=== PATIENT | female | born 1965 | race Caucasian/White ===

== ENCOUNTER → 2016-10-02 | Outpatient (CLI) | payer BC ==
--- NOTE | 2016-10-03 12:50 | MM ---
Reason for exam: screening (asymptomatic). Last mammogram was performed 1 year and 2 months ago. Physical Findings: A clinical breast exam by your physician is recommended on an annual basis and results should be correlated with mammographic findings. MG Screening Mammo w CAD Bilateral CC and MLO view(s) were taken. Prior study comparison: August 16, 2015, bilateral MG screening mammo w CAD. The breast tissue is heterogeneously dense. This may lower the sensitivity of mammography. No significant changes when compared with prior studies. ASSESSMENT: Benign, BI-RAD 2 RECOMMENDATION: Routine screening mammogram of both breasts in 1 year.
== END | disposition home or self-care (01) ==
LOC: RADMAMWWP 07:38
PROVIDERS: ATTEND Obstetrics & Gynecology
DX: Z12.31 Encounter for screening mammogram for malignant neoplasm of breast (principal)

== ENCOUNTER → 2018-05-08 | Outpatient (CLI) | payer BC | END | disposition home or self-care (01) | LOC: LABWHC1 15:12 | PROVIDERS: ATTEND Anesthesiology | DX: Z01.818 Encounter for other preprocedural examination (principal) | CPT/HCPCS: 36415; 93005 ==

== ENCOUNTER → 2018-07-02 | Day surgery (SDC) | payer BC ==
[~2018-07-02] MED LIST: LIDOCAINE 1% INJ 10MG/ML (20 ML MDV) ONE; LIDOCAINE 1% INJ 10MG/ML (20 ML MDV) SQ ONE; ceFAZolin 2 GM in SODIUM CHLORIDE 0.9% 100 ML IVPB ONE; ceFAZolin IN SWFI 2 GM/20 ML SYRINGE IVP ONE
[2018-07-02 11:18] VITALS: RESP 18; TEMP 98
[2018-07-02 11:47] LABS: Basophils % (A) 1 %; Eosinophils # (A) 0.3 k/uL (0-0.7); Eosinophils % (A) 6 %; HCT 32.2 % (34.0-46.0); HGB 10.9 gm/dL (11.4-16.0); Lymphocytes # (A) 1.6 k/uL (1.0-4.8); Lymphocytes % (A) 32 %; MCH 27.1 pg (25.0-35.0); MCHC 33.8 g/dL (31.0-37.0); MCV 80.3 fL (80.0-100.0); Mean Platelet Volume 7.6; Monocytes # (A) 0.3 k/uL (0-1.0); Monocytes % (A) 6 %; Neutrophils # (A) 2.6 k/uL (1.3-7.7); Neutrophils % (A) 53 %; Platelet Count 362 k/uL (150-450); RBC 4.01 m/uL (3.80-5.40); RDW 13.4 % (11.5-15.5); WBC 4.9 k/uL (3.8-10.6)
[2018-07-02 12:18] LABS: Potassium 4.4 mmol/L (3.5-5.1)
[2018-07-02 12:37] VITALS: BP 140/80; PULSE 76
--- NOTE | 2018-07-02 13:24 | IR ---
PICC LINE PLACEMENT: HISTORY: Infection requiring long-term antibiotic therapy PROCEDURE: Ultrasound and fluoroscopic guidance of PICC line placement. COMPLICATIONS: None ANESTHESIA: 1. 1% Lidocaine locally. FINDINGS/TECHNIQUE: The procedure was explained to the patient. The risks, complications, benefits and alternatives were discussed and any questions were answered. Informed consent was obtained. The patient was placed supine on the fluoroscopic table and prepped and draped in the usual sterile fash ion. Utilizing a 21 gauge needle and sonographic and fluoroscopic guidance, access in the left basi lic vein was achieved and there is placement of a 0.018 guidewire. The vein is patent. A 4-F sheath was placed over the guidewire. The guidewire and dilator were removed and a 4-F. PICC line was plac ed through the sheath with the tip at the level of the SVC. The sheath was removed, the catheter was flushed and sutured into position. The patient was stable throughout the procedure and remained sta ble upon discharge from the Department of Radiology. The vein puncture was patent under ultrasound. A de leon scale image was obtained to document patency of the vein punctured. All elements of the maximal barrier technique were utilized. FLUOROSCOPY TIME: 0.2 minutes and one image submitted IMPRESSION: Successful PICC line placement under ultrasound and fluoroscopic guidance.
== END ==
LOC: CATHCVL 10:49
PROVIDERS: ATTEND Radiology Diagnostic Radiology
DX: L08.9 Local infection of the skin and subcutaneous tissue, unspecified (principal); M19.90 Unspecified osteoarthritis, unspecified site; J45.909 Unspecified asthma, uncomplicated; E11.9 Type 2 diabetes mellitus without complications; E78.00 Pure hypercholesterolemia, unspecified; Z87.891 Personal history of nicotine dependence; I10 Essential (primary) hypertension; Z79.1 Long term (current) use of non-steroidal anti-inflammatories (NSAID); Z79.891 Long term (current) use of opiate analgesic; Z79.899 Other long term (current) drug therapy; Z88.5 Allergy status to narcotic agent
CPT/HCPCS: 36573; 80051; 84520; 85025; C1751; C1769; J2001; J0690

== ENCOUNTER → 2018-11-04 | Outpatient (CLI) | payer BC ==
--- NOTE | 2018-11-06 10:40 | MM ---
Reason for exam: screening (asymptomatic). Last mammogram was performed 2 years and 1 month ago. Physical Findings: A clinical breast exam by your physician is recommended on an annual basis and results should be correlated with mammographic findings. MG Screening Mammo w CAD Bilateral CC and MLO view(s) were taken. Prior study comparison: October 02, 2016, bilateral MG screening mammo w CAD. August 16, 2015, bilateral MG screening mammo w CAD. The breast tissue is extremely dense which could obscure a lesion on mammography. No significant changes when compared with prior studies. ASSESSMENT: Benign, BI-RAD 2 RECOMMENDATION: Routine screening mammogram of both breasts in 1 year.
== END | disposition home or self-care (01) ==
LOC: RADMAMWWP 15:30
PROVIDERS: ATTEND Obstetrics & Gynecology
DX: Z12.31 Encounter for screening mammogram for malignant neoplasm of breast (principal)
CPT/HCPCS: 77067

== ENCOUNTER → 2019-08-07 | Outpatient (CLI) | payer BC ==
[2019-08-07 15:11] LABS: HCT 37.1 % (34.0-46.0); HGB 12.1 gm/dL (11.4-16.0); MCH 26.7 pg (25.0-35.0); MCHC 32.5 g/dL (31.0-37.0); MCV 82.1 fL (80.0-100.0); Mean Platelet Volume 8.2; Platelet Count 359 k/uL (150-450); RBC 4.53 m/uL (3.80-5.40); RDW 13.7 % (11.5-15.5); WBC 5.7 k/uL (3.8-10.6)
[2019-08-07 15:26] LABS: Appearance,Urine Cloudy (Clear); Bilirubin,Urine Negative (Negative); Blood,Urine Negative (Negative); Color,Urine Yellow; Glucose,Urine (UA) Negative (Negative); Ketones,Urine Negative (Negative); Leukocyte Esterase,Urine Small (Negative); Mucus,Urine Rare /hpf; Nitrite,Urine Negative (Negative); Protein,Urine Negative (Negative); RBC,Urine 8 /hpf (0-5); Specific Gravity,Urine 1.021 (1.001-1.035); Squamous Epithelial Cell,Urine 9 /hpf (0-4); WBC,Urine 1 /hpf (0-5)
[2019-08-07 15:29] LABS: ALT 13 U/L (4-34); AST 22 U/L (14-36); African American GFR (CKD) >90 (>60 ml/min/1.73 sqM); Albumin 4.9 g/dL (3.5-5.0); Alkaline Phosphatase 127 U/L (38-126); Anion Gap 10 mmol/L; Blood Urea Nitrogen 24 mg/dL (7-17); Calcium 10.2 mg/dL (8.4-10.2); Carbon Dioxide 30 mmol/L (22-30); Chloride 98 mmol/L (98-107); Glucose 175 mg/dL (74-99); Non-African American GFR(CKD) >90 (>60 ml/min/1.73 sqM); Sodium 138 mmol/L (137-145); Total Bilirubin 0.3 mg/dL (0.2-1.3); Total Protein 7.9 g/dL (6.3-8.2)
[2019-08-07 15:36] LABS: Partial Thromboplastin Time 25.9 sec (22.0-30.0); Prothrombin Time 10.3 sec (9.0-12.0)
== END | disposition home or self-care (01) ==
LOC: LABPAT 14:08
PROVIDERS: ATTEND Orthopaedic Surgery
DX: Z01.818 Encounter for other preprocedural examination (principal); Z01.812 Encounter for preprocedural laboratory examination
CPT/HCPCS: 36415; 80053; 81001; 85027; 85610; 85730; 86850; 86900; 86901; 87070; 93005

== ENCOUNTER 2019-08-18 05:49 | Day surgery (SDC) | payer BC ==
[2019-08-14 16:54] VITALS: BMI 26.9
[~2019-08-18 05:49] MED LIST changes: +ACETAMINOPHEN TAB 500 MG TAB PO ONE; +DEXAMETHASONE SOD PHOSPHATE 10 MG/ML 1 ML VIAL IV ONE; +GABAPENTIN 300 MG CAP PO ONE; +LIDOCAINE 1% (10MG/ML) FOR IV START INTRADERMA PRN; -LIDOCAINE 1% INJ 10MG/ML (20 ML MDV) ONE; -LIDOCAINE 1% INJ 10MG/ML (20 ML MDV) SQ ONE; +MELOXICAM 7.5 MG TAB PO ONE; +ONDANSETRON 4 MG/2 ML VIAL IVP ONE; +SCOPOLAMINE 1.5MG/72HR PATCH TRANSDERM ONE; +TRANEXAMIC ACID 1,000 MG in SODIUM CHLORIDE 0.9% 100 ML IVPB ONE; -ceFAZolin 2 GM in SODIUM CHLORIDE 0.9% 100 ML IVPB ONE; -ceFAZolin IN SWFI 2 GM/20 ML SYRINGE IVP ONE
[2019-08-18] MEDS ORDERED: LACTATED RINGERS 1,000 ML IV ONE ×2 (06:10→07:36)
[2019-08-18 06:14] LABS: Glucose,Whole Blood 114 mg/dL (75-99)
[2019-08-18] MEDS ORDERED: PROPOFOL 10 MG/ML 20 ML VIAL IV ONE (06:50)
[2019-08-18] MEDS ORDERED: fentaNYL (PF) 50 MCG/ML 2 ML AMP ONE (06:50)
[2019-08-18] MEDS ORDERED: SODIUM CHLORIDE 0.9% IRRIG 1,000 ML BTL IRRIGATION ONE (06:50)
[2019-08-18] MEDS ORDERED: HEPARIN SODIUM,PORCINE 10,000 UNIT/ML 1 ML VIAL ONE (06:50)
[2019-08-18] MEDS ORDERED: ePHEDrine SULFATE/0.9% NACL/PF 50 MG/5 ML SYRINGE IV ONE (06:50)
[2019-08-18] MEDS ORDERED: TRANEXAMIC ACID 1,000 MG/10 ML VIAL ONE (06:50)
[2019-08-18] MEDS ORDERED: MIDAZOLAM 2 MG/2 ML VIAL ONE (06:50)
[2019-08-18] MEDS ORDERED: PHENYLEPHRINE-0.9% NACL SYG 1 MG/10 ML SYRINGE ONE (06:50)
[2019-08-18] MEDS ORDERED: SODIUM CHLORIDE 0.9% 100 ML BAG ONE (06:50)
[2019-08-18] MEDS ORDERED: ceFAZolin 3,000 MG in SODIUM CHLORIDE 0.9% IRRIGATIO 3,000 ML IRRIGATION ONE (06:54)
[2019-08-18] MEDS ORDERED: hydrOXYzine PAMOATE 25 MG CAP PO PRN (07:02)
[2019-08-18] MEDS ORDERED: HYDROmorphone 1 MG/ML 1 ML SYRINGE IVP PRN (07:02)
[2019-08-18] MEDS ORDERED: HYDROcodone/APAP 5-325MG 1 EACH TAB PO PRN (07:02)
[2019-08-18] MEDS ORDERED: NALOXONE 0.4 MG/ML 1 ML VIAL IV PRN (07:02)
[2019-08-18] MEDS ORDERED: DIAZEPAM 5 MG TAB PO PRN (07:02)
[2019-08-18] MEDS ORDERED: MAGNESIUM HYDROXIDE 2,400 MG/10 ML CUP PO PRN (07:02)
[2019-08-18] MEDS ORDERED: HYDROmorphone 0.5 MG/0.5 ML SYRINGE IVP PRN ×2 (07:02)
[2019-08-18] MEDS ORDERED: ONDANSETRON 4 MG/2 ML VIAL IVP PRN (07:02)
[2019-08-18] MEDS: ROPIVACAINE 246.25 MG, EPINEPHrine 0.5 MG, KETOROLAC 30 MG, cloNIDine HCL/PF 80 MCG, WA... MISCELLANE ONE ×10 (07:23→08:04)
--- NOTE | 2019-08-18 08:29 | P.OP ---
Date of Procedure: 08/18/19 Preoperative Diagnosis: Severe osteoarthritis right hip Postoperative Diagnosis: Severe osteoarthritis right hip Procedure(s) Performed: Right total hip arthroplasty with a direct anterior approach Implants: Beebe and nephew Polarstem size 2 standard Beebe [employer] Nephew R3, 3 hole acetabular shell, 48 mm [employer]be [employer]hew reflection 6.5 mm cancellus screw, 20 mm 2 Bee[employer]hew R3, XLPE 20 acetabular liner Beebe [employer] Nephew Oxinium femoral head 32 m, +0 All components were press-fit. The articulation is Oxinium on polyethylene. Anesthesia: spinal Surgeon: Reji Pink Staff Forester #1: Connie Lee Estimated Blood Loss (ml): 350 (130 mL returned with Cell Saver) Pathology: other (Femoral head) Condition: stable Disposition: PACU Indications for Procedure: After failure of conservative treatment we discussed the surgical and nonsurgical treatment options at length. Patient wishes to proceed with a total hip arthroplasty with a direct anterior approach. Complications specific to this procedure were discussed at length, including but not limited to infection, leg length discrepancy, dislocation, and nerve injury. Covid-19 was also discussed at length with the patient, and they are aware of the current policies and procedures. The patient was given the option of delaying surgery, but they elect to proceed knowing these risks. Patient is aware of all these complications and informed consent was obtained Operative Findings: The operative findings are consistent with severe osteoarthritis of the right hip Description of Procedure: Patient was seen and evaluated in the preoperative area, consent was reviewed, and the surgical site was marked with a skin marker. Patient was then brought to the operating room and given prophylactic antibiotics intravenously. 1 g of Tranexamic acid was also given. A spinal anesthetic was administered by the anesthesia department. The patient was then placed on the Hemet table with the bony prominences well-padded. The hip area was then prepped and draped in usual sterile fashion. A universal timeout was then performed, which confirmed the patient's name, surgical site, ALLERGIES, and procedure being performed. Next the incision site was located at 1 cm distal and 1 cm lateral to the anterior superior iliac spine. The skin and subcutaneous tissues were sharply incised. Incision was carefully dissected down to the fascia overlying the tensor fascia lenny muscle. This fascia was then incised in line with the incision. Next, using blunt finger dissection, the tensor fascia lenny muscle was dissected off its investing fascia. The muscle was then carefully retracted laterally with a cobra retractor over the lateral neck of the femur. Next, the circumflex vessels were identified and cauterized using the AquaMantis device. The anterior hip capsule was then exposed. The capsule was then opened and an inverted T fashion. Cobra retractors were then placed intracapsularly. The proximal femur was then visualized. The femoral neck was then osteotomized appropriate level above the lesser trochanter. Small amount of traction was placed with the Hemet table. A small wedge of bone was then removed from the remaining femoral head. Next, using a corkscrew femoral head was easily removed from the acetabulum. On gross visual inspection, the femoral head had complete loss of articular cartilage in multiple periarticular osteophytes. Attention was then turned to the acetabulum. the acetabulum was exposed and any remaining labrum was excised. Sequential reaming of the acetabulum was performed using fluoroscopic guidance. When the appropriate size was reached, a trial was then placed. The position and fit of the trial was checked with fluoroscopy. The trial was then removed. Then, using fluoroscopic guidance, the final implant was impacted at 20 of anteversion and 40 of abduction, and fully seated in the acetabulum. 2 screws were then placed in the acetabulum. Again fluoroscopy was used to check position of the screws. Next, the liner was then impacted, with a 20 elevated liner located in the anterior superior quadrant. Component locking was confirmed. Attention was then directed to the femur. With the aid of the Hemet table, the femur was externally rotated to approximately 130, extended, and abducted under the opposite leg. A side hook was then placed under the proximal femur, and the side hook elevator was used to elevate the proximal femur. Retractors were then placed. A capsular release was performed, as well as a release of the conjoined tendon, which afforded excellent visualization of the proximal femur. Next, a box osteotome was used to lateralize the proximal femur. A coil winder hand was then used to locate the femoral canal. Sequential broaching was then performed with appropriate size which afforded excellent fixation in the proximal femur. A trial was then placed with appropriate head and neck, and the hip was gently reduced with the aid of the Hemet table. Fluoroscopy was then used to check position of the components, as well as to ensure equal leg lengths. The hip was then gently dislocated and the trials were then removed. Final implants were then impacted and the hip was again reduced. Final fluoroscopic x-rays confirmed that the components were in anatomic position, as well as equal leg lengths. The hip was also taken through range of motion, and found to be stable. The hip was then copiously irrigated with antibiotic solution with pulsatile lavage. The hip was then irrigated with Irrisept solution. The soft tissues were then injected with a ropivacaine solution, which consisted of 246.25 mg of ropivacaine, 0.5 mg of epinephrine, 30 mg of Toradol, 80 g of clonidine, and 48.45 mL of sterile water, for a total of 100 mL of fluid injected. A second dose of 1 g of Tranexamic acid was also given. the fascia was then closed with 2-0 strata fix suture. The subcutaneous tissue was closed with 3-0 Vicryl. The subcuticular tissue was closed with 3-0 strata fix suture. The skin was then closed with Dermabond glue and a sterile silver dressing. The patient was then transferred to the recovery room in stable condition. The sales assistant entertainment and media HAI Ramirez was required due to the complexity of surgery, and the need for skilled certified surgical assistant for positioning, draping, exposure, retraction, and closure of the wound.
--- NOTE | 2019-08-18 08:43 | FL ---
Fluoroscopy INDICATION: Pain FINDINGS: Fluoroscopy time: 44 seconds. Images obtained: 2. IMPRESSIONS: 1. Documentation of fluoroscopy.
--- NOTE | 2019-08-18 09:09 | XR ---
AP right hip INDICATION: Pain post surgery Technique: AP view right hip. Findings: Prosthesis is present. Postsurgical changes are present. No acute fractures are evident. IMPRESSIONS: 1. No acute fractures post right hip replacement.
[2019-08-18] MEDS: HYDROmorphone 0.5 MG/0.5 ML SYRINGE IVP PRN ×2 (09:10→09:20)
[2019-08-18] MEDS ORDERED: SODIUM CHLORIDE 0.9% 1,000 ML IV ONE (10:46)
[2019-08-18] MEDS: LACTATED RINGERS 1,000 ML IV SCH (11:23)
[2019-08-18] MEDS: SODIUM CHLORIDE 0.9% 1,000 ML IV SCH ×2 (11:24→22:02)
[2019-08-18] MEDS: HYDROcodone/APAP 5-325MG 1 EACH TAB PO PRN ×2 (13:35→22:03)
--- NOTE | 2019-08-18 15:05 | P.CONS ---
History of Present Illness - Reason for Consult Management of hypertension - History of Present Illness Patient is a pleasant 54-year-old female admitted for a right total hip arthroplasty successfully underwent surgery clinically doing well. Patient doesn't have a Trujillo catheter or surgical drain. patient pain is where well- controlled, patient blood pressure is bit elevated . Review of Systems REVIEW OF SYSTEMS: CONSTITUTIONAL: No fever, no malaise, no fatigue. HEENT: No recent visual problems or hearing problems. Denied any sore throat. CARDIOVASCULAR: No chest pain, orthopnea, PND, no palpitations, no syncope. PULMONARY: No shortness of breath, no cough, no hemoptysis. GASTROINTESTINAL: No diarrhea, no nausea, no vomiting, no abdominal pain. NEUROLOGICAL: No headaches, no weakness, no numbness. HEMATOLOGICAL: Denies any bleeding or petechiae. GENITOURINARY: Denies any burning micturition, frequency, or urgency. MUSCULOSKELETAL/RHEUMATOLOGICAL: Denies any joint pain, swelling, or any muscle pain. ENDOCRINE: Denies any polyuria or polydipsia. The rest of the 14-point review of systems is negative. Past Medical History Past Medical History: Asthma, Diabetes Mellitus, GERD/Reflux, Hyperlipidemia, Hypertension, Musculoskeletal Disorder, Osteoarthritis (OA) Additional Past Medical History / Comment(s): infection right second toe after recent surgery, DIABETIC- DIET CONTROLLED History of Any Multi-Drug Resistant Organisms: None Reported Past Surgical History: Appendectomy, Back Surgery, Bladder Surgery, Cholecystectomy, Hysterectomy, Orthopedic Surgery Additional Past Surgical History / Comment(s): cervical fusion x 2, mai bunionectomy, neuromas removed right foot, surg for plantar fascitis, hammer toe surg right 2nd toe w/pin inserted , BILATERAL CARPAL TUNNEL SURGERY, TUMMY TUCK Past Anesthesia/Blood Transfusion Reactions: No Reported Reaction Past Psychological History: Anxiety Smoking Status: Never smoker Past Alcohol Use History: Occasional Additional Past Alcohol Use History / Comment(s): STARTED SMOKING AT AGE 18 QUIT IN 2000 SMOKED 1PPD Past Drug Use History: None Reported - Past Family History Father Family Medical History: Cancer Medications and Allergies Home Medications Medication Instructions Recorded Confirmed Type Atenolol 50 mg PO DAILY 06/01/15 08/14/19 History Hydrochlorothiazide 25 mg PO DAILY 06/01/15 08/14/19 History Lisinopril 10 mg PO DAILY 06/01/15 08/14/19 History traMADol HCl [Ultram] 50 mg PO Q4H PRN #30 tab 06/01/15 08/14/19 Rx DULoxetine HCL [Cymbalta] 60 mg PO BID 07/01/18 08/14/19 History Gabapentin [Neurontin] 800 mg PO TID 07/01/18 08/14/19 History Gemfibrozil [Lopid] 600 mg PO AC-BID 07/01/18 08/14/19 History Montelukast [Singulair] 10 mg PO HS 07/01/18 08/14/19 History Multivitamins, Thera [Multivitamin 1 tab PO DAILY 07/01/18 08/14/19 History (formulary)] Omeprazole [PriLOSEC] 20 mg PO AC-BID 08/14/19 08/14/19 History Allergies Allergy/AdvReac Type Severity Reaction Status Date / Time erythromycin base Allergy Nausea & Verified 08/14/19 16:28 Vomiting phenytoin sodium AdvReac Nausea & Verified 08/14/19 16:28 [From Dilantin] Vomiting phenytoin sodium extended AdvReac Nausea & Verified 08/14/19 16:28 [From Dilantin] Vomiting Physical Exam Vitals: Vital Signs Temp Pulse Resp BP BP Pulse Ox 08/18/19 12:24 75 100 08/18/19 12:21 74 93/58 100 08/18/19 12:07 74 100/57 97 08/18/19 11:51 76 110/71 100 08/18/19 11:36 73 107/69 79 L 08/18/19 11:34 72 80 L 08/18/19 11:27 81 87 L 08/18/19 11:22 76 134/82 99 08/18/19 11:06 97.5 F L 71 17 145/90 97 08/18/19 10:30 69 16 122/72 100 08/18/19 10:00 68 16 139/79 100 08/18/19 09:44 69 16 133/67 100 08/18/19 09:29 70 16 144/78 100 08/18/19 09:05 68 16 151/80 100 08/18/19 08:50 73 16 140/73 100 08/18/19 08:37 78 18 140/73 97 08/18/19 06:05 97.8 F 73 18 169/89 100 Intake and Output 08/18/19 08/18/19 08/18/19 06:59 14:59 22:59 Intake Total 1001 1200 Output Total 1050 Balance 1001 150 Intake: IV 1001 1000 Oral 200 Output: Urine 700 Estimated Blood Loss 350 Other: # Voids 1 Weight 74.3 kg 74.3 kg PHYSICAL EXAMINATION: GENERAL: The patient is alert and oriented x3, not in any acute distress. Well developed, well nourished. HEENT: Pupils are round and equally reacting to light. EOMI. No scleral icterus. No conjunctival pallor. Normocephalic, atraumatic. No pharyngeal erythema. No thyromegaly. CARDIOVASCULAR: S1 and S2 present. No murmurs, rubs, or gallops. PULMONARY: Chest is clear to auscultation, no wheezing or crackles. ABDOMEN: Soft, nontender, nondistended, normoactive bowel sounds. No palpable organomegaly. MUSCULOSKELETAL: Surgical site area appears to be clean without any swelling. EXTREMITIES: No cyanosis, clubbing, or pedal edema. NEUROLOGICAL: Gross neurological examination did not reveal any focal deficits. SKIN: No rashes. Results Labs: Abnormal Lab Results - Last 24 Hours (Table) 08/18/19 Range/Units 06:12 POC Glucose (mg/dL) 114 H (75-99) mg/dL Assessment and Plan Plan: Abdomen hypertension: Patient blood pressure is presently elevated but expected to have perioperative hypotension because of which are not hold off on hydrocodone presently lisinopril and atenolol will be continued. -Hyperlipidemia Hypertension -Gastroesophageal reflux disease Hyperlipidemia Peripheral neuropathy. -Hip arthroplasty pain management as per primary service and patient is an due to prophylaxis with aspirin twice a day to 25 mg Medication reconciliation was done in the appropriate medications were restarted back.
[2019-08-18 15:16] VITALS: RESP 16
[2019-08-18] MEDS: GABAPENTIN 300 MG CAP PO SCH ×2 (16:09→22:02)
[2019-08-18] MEDS ORDERED: MONTELUKAST 10 MG TAB PO SCH (21:00)
[2019-08-18] MEDS ORDERED: SENNOSIDES-DOCUSATE SODIUM 1 EACH TAB PO SCH (21:00)
[2019-08-18] MEDS: ASPIRIN 325 MG TAB PO SCH (22:02)
[2019-08-18] MEDS: DULoxetine HCL 60 MG CAPSULE.DR PO SCH (22:02)
[2019-08-19] MEDS: LACTATED RINGERS 1,000 ML IV SCH (05:56)
[2019-08-19] MEDS: HYDROcodone/APAP 5-325MG 1 EACH TAB PO PRN (06:33)
[2019-08-19 07:05] LABS: Basophils % (A) 0 %; Eosinophils # (A) 0.2 k/uL (0-0.7); Eosinophils % (A) 2 %; HCT 28.6 % (34.0-46.0); Lymphocytes # (A) 2.1 k/uL (1.0-4.8); Lymphocytes % (A) 26 %; MCHC 31.1 g/dL (31.0-37.0); MCV 80.5 fL (80.0-100.0); Mean Platelet Volume 8.5; Monocytes # (A) 0.3 k/uL (0-1.0); Monocytes % (A) 4 %; Neutrophils # (A) 5.2 k/uL (1.3-7.7); Neutrophils % (A) 66 %; Platelet Count 328 k/uL (150-450); RBC 3.55 m/uL (3.80-5.40); RDW 13.9 % (11.5-15.5); WBC 7.8 k/uL (3.8-10.6)
[2019-08-19 07:07] LABS: HGB 8.9 gm/dL (11.4-16.0)
[2019-08-19] MEDS ORDERED: PANTOPRAZOLE 40 MG TABLET PO SCH (07:30)
[2019-08-19] MEDS ORDERED: FENOFIBRATE 160 MG TAB PO SCH (07:30)
[2019-08-19] MEDS: ASPIRIN 325 MG TAB PO SCH (08:00)
[2019-08-19] MEDS: GABAPENTIN 300 MG CAP PO SCH (08:00)
[2019-08-19] MEDS: DULoxetine HCL 60 MG CAPSULE.DR PO SCH (08:00)
[2019-08-19 08:27] VITALS: BP 124/74; PULSE 86; TEMP 98.4
[2019-08-19] MEDS ORDERED: MELOXICAM 7.5 MG TAB PO SCH (09:00)
--- NOTE | 2019-08-19 09:02 | P.DS ---
Providers Expected date of discharge: 08/19/19 Attending physician: Reji Pink Consults: 08/18/19 07:02 Consult Physician Routine Consulting Provider: Levon Prince Consult Reason/Comments: medical management Do you want consulting provider notified?: Yes Primary care physician: Tomasz Akhtar - Discharge Diagnosis(es) (1) S/P total hip arthroplasty Current Visit: Yes Status: Acute (2) Osteoarthritis of right hip Current Visit: Yes Status: Acute Hospital Course: This is a 54-year-old female with known history of degenerative arthritis of the right hip. The patient presents for evaluation. After discussion and consideration patient elected to proceed with total hip arthroplasty. The patient is seen preoperatively by Dr. Pink and medically cleared for surgery by their primary care physician. Patient is admitted to [facility] on 08/18/2019 for total hip arthroplasty. The procedures performed without complication or sequelae. The patient is doing well postoperatively. Labs and vital signs are stable on day of discharge. On day of discharge patient's hip incision is healing well. There is minimal erythema. There is no drainage noted at this time. There is minimal soft tissue swelling to the hip and thigh. Patient has full foot and ankle motion without difficulty or pain. Calf is soft and nontender to palpation. Neurovascular status to the right lower extremity is intact. Patient is discharged home in good condition. Opioid start talking form is reviewed and signed at patient bedside. Please see med rec for accurate list of home medications. Plan - Discharge Summary Discharge Rx Participant: Yes New Discharge Prescriptions: New Aspirin 325 mg PO BID #60 tab HYDROcodone/APAP 5-325MG [Kasson 5-325] 1 - 2 tab PO Q6HR PRN #56 tab PRN Reason: Pain Sennosides [Senokot] 2 tab PO DAILY PRN #60 tablet PRN Reason: Constipation No Action Hydrochlorothiazide 25 mg PO DAILY Atenolol 50 mg PO DAILY Lisinopril 10 mg PO DAILY traMADol HCl [Ultram] 50 mg PO Q4H PRN #30 tab PRN Reason: Pain Montelukast [Singulair] 10 mg PO HS Gemfibrozil [Lopid] 600 mg PO AC-BID DULoxetine HCL [Cymbalta] 60 mg PO BID Gabapentin [Neurontin] 800 mg PO TID Multivitamins, Thera [Multivitamin (formulary)] 1 tab PO DAILY Omeprazole [PriLOSEC] 20 mg PO AC-BID Discharge Medication List Atenolol 50 mg PO DAILY 06/01/15 [History] Hydrochlorothiazide 25 mg PO DAILY 06/01/15 [History] Lisinopril 10 mg PO DAILY 06/01/15 [History] traMADol HCl [Ultram] 50 mg PO Q4H PRN #30 tab 06/01/15 [Rx] DULoxetine HCL [Cymbalta] 60 mg PO BID 07/01/18 [History] Gabapentin [Neurontin] 800 mg PO TID 07/01/18 [History] Gemfibrozil [Lopid] 600 mg PO AC-BID 07/01/18 [History] Montelukast [Singulair] 10 mg PO HS 07/01/18 [History] Multivitamins, Thera [Multivitamin (formulary)] 1 tab PO DAILY 07/01/18 [History] Omeprazole [PriLOSEC] 20 mg PO AC-BID 08/14/19 [History] Aspirin 325 mg PO BID #60 tab 08/19/19 [Rx] HYDROcodone/APAP 5-325MG [Kasson 5-325] 1 - 2 tab PO Q6HR PRN #56 tab 08/19/19 [Rx] Sennosides [Senokot] 2 tab PO DAILY PRN #60 tablet 08/19/19 [Rx] Follow up Appointment(s)/Referral(s): Reji Pink DO [Doctor of Osteopathic Medicine] - 2 Weeks Patient Instructions/Handouts: Anterior Hip Replacement (DC) Activity/Diet/Wound Care/Special Instructions: Weightbearing as tolerated with walker. Leave dressing intact. Dressing may be removed by home care nurse or by patient in 10 days. May shower with dressing on. Recommend use of compression stockings daily until follow up to help prevent swelling and blood clots. May remove at night before sleeping. Please follow-up with [facility] in 2 weeks and call with any questions or concerns, . Discharge Disposition: HOME WITH HOME HEALTH SERVICES
--- NOTE | 2019-08-19 14:00 | P.PN ---
Subjective Patient is clinically doing well and is being discharged today patient blood pressure is within normal limits patient was started on any of her 3 ant idepressants medications. I recommended her to resume her beta valerie today and can resume her DAWSON inhibitor tomorrow or day after depending on her blood pressure at home and I discontinued the diuretic which I do not believe is required. Patient will follow with PCP closely and medication regimen can be changed accordingly depending on her blood pressure at the time of discharge. Patient blood pressure is bit low because of the surgery which is expected in the perioperative period and her blood pressure is expected to go up a bit. Same thing was discussed with the patient. Constitutional: Denied any fatigue denied any fever. Cardio vascular: denied any chest pain, palpitations Gastrointestinal denied any nausea vomiting Pulmonary: Denied any shortness of breath cough Neurologic denied any new focal deficits All inpatient medications were reviewed and appropriate changes in these medications as dictated in the interval history and assessment and plan. Objective - Vital Signs Vital signs: Vital Signs Temp 98.4 F 08/19/19 07:00 Pulse 86 08/19/19 07:00 Resp 16 08/19/19 07:00 BP 124/74 08/19/19 07:00 Pulse Ox 100 08/19/19 07:00 Intake & Output 08/18/19 08/19/19 08/19/19 18:59 06:59 18:59 Intake Total 1400 Output Total 1050 Balance 350 Weight 74.3 kg Intake: IV 1000 Oral 400 Output: Urine 700 Estimated Blood Loss 350 Other: Voiding Method Toilet Toilet # Voids 1 2 1 - Exam PHYSICAL EXAMINATION: GENERAL: The patient is alert and oriented x3, not in any acute distress. Obese HEENT: Pupils are round and equally reacting to light. EOMI. No scleral icterus. No conjunctival pallor. Normocephalic, atraumatic. No pharyngeal erythema. No thyromegaly. CARDIOVASCULAR: S1 and S2 present. No murmurs, rubs, or gallops. PULMONARY: Chest is clear to auscultation, no wheezing or crackles. ABDOMEN: Soft, nontender, nondistended, normoactive bowel sounds. No palpable organomegaly. MUSCULOSKELETAL: No joint swelling or deformity. EXTREMITIES: No cyanosis, clubbing, or pedal edema. NEUROLOGICAL: Gross neurological examination did not reveal any focal deficits. SKIN: No rashes. - Labs CBC & Chem 7: 08/19/19 06:30 Labs: Abnormal Lab Results - Last 24 Hours (Table) 08/19/19 Range/Units 06:30 RBC 3.55 L (3.80-5.40) m/uL Hgb 8.9 L D (11.4-16.0) gm/dL Hct 28.6 L (34.0-46.0) % Assessment and Plan Plan: Essential hypertension: Management as mentioned above -Hyperlipidemia Hypertension -Gastroesophageal reflux disease Hyperlipidemia Peripheral neuropathy. -Hip arthroplasty pain management as per primary service and patient is an due to prophylaxis with aspirin twice a day 325 mg Patient can be discharged from medical perspective
== END 2019-08-19 12:31 | disposition home health service (06) ==
LOC: OR 05:49 → 4SSUR 08:35 → OR 08-19 12:31
PROVIDERS: ATTEND Orthopaedic Surgery
DX: M16.11 Unilateral primary osteoarthritis, right hip (principal); I10 Essential (primary) hypertension; J45.909 Unspecified asthma, uncomplicated; E78.5 Hyperlipidemia, unspecified; E11.42 Type 2 diabetes mellitus with diabetic polyneuropathy; K21.9 Gastro-esophageal reflux disease without esophagitis; F41.9 Anxiety disorder, unspecified; Z88.1 Allergy status to other antibiotic agents; Z88.5 Allergy status to narcotic agent; Z88.8 Allergy status to other drugs, medicaments and biological substances; Z79.1 Long term (current) use of non-steroidal anti-inflammatories (NSAID); Z79.899 Other long term (current) drug therapy; Z98.1 Arthrodesis status; Z90.710 Acquired absence of both cervix and uterus; Z90.49 Acquired absence of other specified parts of digestive tract; Z98.890 Other specified postprocedural states; Z87.891 Personal history of nicotine dependence; Z97.3 Presence of spectacles and contact lenses; Z83.3 Family history of diabetes mellitus; Z82.49 Family history of ischemic heart disease and other diseases of the circulatory system; Z80.9 Family history of malignant neoplasm, unspecified
CPT/HCPCS: 97116; 97110; 97161; 97535; 97165; 86891; 85025; 88300; 73501; 73502; 27130; P9022; C1776; J0171; J1100; J0690 ×3; J2405; J1885; J2795; J0735; J1170; 36415; 86850; 86900; 86901

== ENCOUNTER → 2019-11-18 | Outpatient (CLI) | payer BC ==
--- NOTE | 2019-11-19 14:45 | MM ---
Reason for exam: screening (asymptomatic). Last mammogram was performed 1 year ago. Physical Findings: A clinical breast exam by your physician is recommended on an annual basis and results should be correlated with mammographic findings. MG Screening Mammo w CAD Bilateral CC and MLO view(s) were taken. Prior study comparison: November 04, 2018, bilateral MG screening mammo w CAD. October 02, 2016, bilateral MG screening mammo w CAD. The breast tissue is heterogeneously dense. This may lower the sensitivity of mammography. There is no discrete abnormality. No significant changes when compared with prior studies. ASSESSMENT: Negative, BI-RAD 1 RECOMMENDATION: Routine screening mammogram of both breasts in 1 year.
== END | disposition home or self-care (01) ==
LOC: RADMAMWWP 14:40
PROVIDERS: ATTEND Obstetrics & Gynecology
DX: Z12.31 Encounter for screening mammogram for malignant neoplasm of breast (principal)
CPT/HCPCS: 77067

== ENCOUNTER → 2021-03-14 | Outpatient (CLI) | payer OTHER ==
--- NOTE | 2021-03-14 16:45 | BD ---
EXAMINATION TYPE: Axial Bone Density DATE OF EXAM: 03/14/2021 COMPARISON: NONE CLINICAL HISTORY: post menopausal Height: 5'4 Weight: 181 FRAX RISK QUESTIONS: Secondary Osteoporosis: 3. Menopause before 45: y RISK FACTORS HISTORY OF: Surgery to Spine/ lower 2002 Hip(right rt hip replaced 08/21 Family History of Osteoporosis: y Active: n Postmenopausal woman: y Frequent falls: y Poor Health: y MEDICATIONS: Additional Medications: blood pressure, cholesterol, acid reflux, allergies, anxiety, pain Additional History: EXAM MEASUREMENTS: Bone mineral density about the L hip (g/cm2): 1.087 T Score values are as follows: -----L Neck: 0.1 -----L Total: 0.6 Bone mineral density about the L Wrist (g/cm2): 0.747 T Score values are as follows: -----Dist. R+U: 1.7 -----Prox. R+U: 1.0 -----Radius total: 1.2 IMPRESSION: Normal (Values between +1 and -1 indicate normal bone mass). Consider repeating this study in 5 year s or sooner if there is some new clinical indication. NOTE: T-SCORE=SD OF THE YOUNG ADULT MEAN.
--- NOTE | 2021-03-16 10:17 | MM ---
Reason for exam: screening (asymptomatic). Last mammogram was performed 1 year and 4 months ago. Physical Findings: A clinical breast exam by your physician is recommended on an annual basis and results should be correlated with mammographic findings. MG Screening Mammo w CAD Bilateral CC and MLO view(s) were taken. Prior study comparison: November 18, 2019, bilateral MG screening mammo w CAD. November 04, 2018, bilateral MG screening mammo w CAD. The breast tissue is extremely dense which could obscure a lesion on mammography. Benign appearing bilateral calcifications. No significant changes when compared with prior studies. ASSESSMENT: Benign, BI-RAD 2 RECOMMENDATION: Routine screening mammogram of both breasts in 1 year.
== END | disposition home or self-care (01) ==
LOC: RADMAMWWP 14:03
PROVIDERS: ATTEND Obstetrics & Gynecology
DX: Z12.31 Encounter for screening mammogram for malignant neoplasm of breast (principal); Z78.0 Asymptomatic menopausal state
CPT/HCPCS: 77067; 77080